=== PATIENT | male | born 1985 | race Caucasian/White ===

== ENCOUNTER 2017-07-21 13:06 | Emergency (ER) | payer MEDICAID ==
[~2017-07-21] VITALS: Ht 175.3 cm; Wt 72.6 kg
[2017-07-21] MEDS ORDERED: TRIA15CR50 TP (14:42)
[2017-07-21] MEDS ORDERED: PERM60CR11 TP (14:42)
--- NOTE | 2017-07-21 14:43 | PHYS DOC ---
Past History Past Medical History: No Pertinent History Past Surgical History: No Surgical History Alcohol Use: None Drug Use: Marijuana Adult General Chief Complaint Chief Complaint: SKIN RASH/ABSCESS HPI HPI Patient is a 31 year old M who presents with rash on his upper extremities that started this morning. He describes a rash that consists of itchy red bumps. He has no other associated symptoms. He has no other exacerbating or relieving factors. He does not know of any exposure that he has had. Review of Systems Review of Systems Constitutional: Denies fever or chills [] Eyes: Denies change in visual acuity, redness, or eye pain [] HENT: Denies nasal congestion or sore throat [] Respiratory: Denies cough or shortness of breath [] Cardiovascular: No additional information not addressed in HPI [] GI: Denies abdominal pain, nausea, vomiting, bloody stools or diarrhea [] : Denies dysuria or hematuria [] Musculoskeletal: Denies back pain or joint pain [] Integument: Negative except history of present illness Neurologic: Denies headache, focal weakness or sensory changes [] Endocrine: Denies polyuria or polydipsia [] All other systems were reviewed and found to be within normal limits, except as documented in this note. Family History Family History Noncontributory Current Medications Current Medications No current medications Allergies Allergies No known allergies Physical Exam Physical Exam Constitutional: Well developed, well nourished, no acute distress, non-toxic appearance. [] HENT: Normocephalic, atraumatic, bilateral external ears normal, oropharynx moist, no oral exudates, nose normal. [] Eyes: EOMI, conjunctiva normal, no discharge. [] Neck: Normal range of motion, no tenderness, supple, no stridor. [] Cardiovascular:Heart rate regular rhythm, no murmur [] Lungs & Thorax: Bilateral breath sounds clear to auscultation [] Abdomen: Bowel sounds normal, soft, no tenderness, no masses, no pulsatile masses. [] Skin: Red papular rash on bilateral forearms, occasional small pustules 1 mm in size Back: No tenderness, no CVA tenderness. [] Extremities: No tenderness, no cyanosis, no clubbing, ROM intact, no edema. [] Neurologic: Alert and oriented X 3, normal motor function, normal sensory function, no focal deficits noted. [] Psychologic: Affect normal, judgement normal, mood normal. [] Current Patient Data Vital Signs Vital Signs Date Time Temp Pulse Resp B/P (MAP) Pulse Ox O2 Delivery O2 Flow Rate FiO2 07/21/17 13:34 98.2 101 18 100 Room Air EKG EKG [] Radiology/Procedures Radiology/Procedures [] Course & Med Decision Making Course & Med Decision Making Pertinent Labs and Imaging studies reviewed. (See chart for details) [] Dragon Disclaimer Dragon Disclaimer This electronic medical record was generated, in whole or in part, using a voice recognition dictation system. Departure Departure: Impression: Primary Impression: Contact dermatitis Disposition: HOME, SELF-CARE Condition: STABLE Patient Instructions: Contact Dermatitis, Scabies Additional Instructions: Kevin was seen in the emergency department for rash. No emergency medical condition was found on history or physical exam. His symptoms are most consistent with contact dermatitis. However his symptoms may represent scabies. He is given a prescription for topical steroid to treat his symptoms. He was also given a prescription for topical treatment for scabies to start if his symptoms worsen or do not improve with topical steroids. He is advised follow- up with his primary care doctor in the next 3-5 days for further management. Scripts Triamcinolone Acetonide (TRIAMCINOLONE ACETONIDE) 15 Gm Cream..g. 1 DAVID TP BID, #15 GM 1 Refill Prov: THU LEDESMA MD 07/21/17 Permethrin (ELIMITE) 60 Gm Cream..g. 60 GM TP 1X for 1 Day, EACH 1 Refill Prov: THU LEDESMA MD 07/21/17 Problem Qualifiers Primary Impression: Contact dermatitis Contact dermatitis type: unspecified Contact dermatitis trigger: unspecified trigger Qualified Codes: L25.9 - Unspecified contact dermatitis, unspecified cause THU LEDESMA MD Jul 21, 2017 14:42
[2017-07-21 14:49] VITALS: BP 132/73
== END 2017-07-21 14:48 | disposition home or self-care (01) ==
LOC: ER 13:06
DX: L25.9 Unspecified contact dermatitis, unspecified cause (principal); F12.10 Cannabis abuse, uncomplicated
CPT/HCPCS: 99283